=== PATIENT | female | born 2000 | race Hispanic/Latino ===

== ENCOUNTER 2020-01-13 15:53 | Emergency (ER) | payer MEDICAID, OTHER ==
[2020-01-13 16:32] LABS: APPEARANCE,URINE Clear (CLEAR); BILIRUBIN,URINE Negative (NEGATIVE); COLOR,URINE Yellow (YELLOW); GLUCOSE, URINE (UA) Negative (NEGATIVE); KETONES,URINE Negative (NEGATIVE); LEUKOCYTE ESTERASE ,URINE Negative (NEGATIVE); NITRATE,URINE Negative (NEGATIVE); OCCULT BLOOD,URINE Negative (NEGATIVE); PROTEIN,URINE Negative (NEGATIVE)
[2020-01-13] MEDS ORDERED: KETOROLAC TROMETHAMINE 30MG/ML ONE (17:23)
== END 2020-01-13 17:37 | disposition home or self-care (01) ==
LOC: EDH 15:53
DX: K62.89 Other specified diseases of anus and rectum (principal)
CPT/HCPCS: 81003; 96372; 99283; J1885

== ENCOUNTER 2021-09-04 01:46 | Emergency (ER) | payer MEDICAID ==
[~2021-09-04] VITALS: Ht 147.3 cm; Wt 62.1 kg
[2021-09-04 02:29] LABS: APPEARANCE,URINE SL CLOUDY (CLEAR); BILIRUBIN,URINE NEGATIVE (NEGATIVE); COLOR,URINE YELLOW (YELLOW); GLUCOSE, URINE (UA) NEGATIVE (NEGATIVE); KETONES,URINE 5 mg/dL (NEGATIVE); LEUKOCYTE ESTERASE ,URINE TRACE (NEGATIVE); NITRATE,URINE NEGATIVE (NEGATIVE); OCCULT BLOOD,URINE MODERATE (NEGATIVE); PROTEIN,URINE NEGATIVE (NEGATIVE)
[2021-09-04 02:31] LABS: HCG,QUALITATIVE URINE NEGATIVE (NEGATIVE)
[2021-09-04 02:40] LABS: BACTERIA,URINE Few /HPF (None Seen); MUCUS,URINE Few LPF (None Seen); SQUAMOUS EPITHELIAL CELL,UR Moderate /HPF (0-2)
[2021-09-04] MEDS ORDERED: HYDROXYZINE 10 MG TABLET PO SCH (03:30)
[2021-09-04] MEDS ORDERED: HYD25 PO (03:37)
[2021-09-04 04:07] VITALS: BP 105/74
[2021-09-04 04:13] LABS: BASOPHILS % (AUTO) 0.6 % (0.0-5.0); EOSINOPHILS % (AUTO) 0.6 % (0.0-8.0); HEMATOCRIT 39.2 % (36-48); LYMPHOCYTES % (AUTO) 34.1 % (21.0-51.0); MEAN CORPUSCULAR HEMOGLOBIN 29.6 pg (27.0-33.0); MEAN CORPUSCULAR HGB CONC 35.2 g/dL (32.0-36.0); MEAN CORPUSCULAR VOLUME 84.1 fL (79-99); MONOCYTES % (AUTO) 7.4 % (3.0-13.0); NEUTROPHILS % (AUTO) 57.1 % (40.0-77.0); PLATELET COUNT (AUTO) 285 K/uL (130-400); RED BLOOD CELL COUNT(AUTO) 4.66 MIL/uL (4.00-5.50); WHITE BLOOD COUNT (AUTO) 8.6 K/uL (4.8-10.8)
[2021-09-04 04:23] LABS: CREATININE 0.7 mg/dL (0.5-1.5); POTASSIUM 3.8 mmol/L (3.5-5.1)
[2021-09-04 04:28] LABS: ALBUMIN 4.1 g/dL (3.5-5.0); TOTAL PROTEIN, SERUM 7.8 g/dL (6.0-8.3)
== END 2021-09-04 04:30 | disposition home or self-care (01) ==
LOC: EDH 01:46
DX: F41.9 Anxiety disorder, unspecified (principal); Z79.899 Other long term (current) drug therapy
CPT/HCPCS: 36415; 80053; 81001; 81025; 84484; 85025; 93005

== ENCOUNTER 2022-04-28 14:06 | Emergency (ER) | payer MEDICAID ==
[~2022-04-28] VITALS: Ht 144.8 cm; Wt 63.5 kg
[~2022-04-28 14:06] MED LIST: HYD25 PO
[2022-04-28 15:11] VITALS: BP 112/75
[2022-04-28] MEDS ORDERED: AMOX500C2 PO (15:45)
== END 2022-04-28 16:12 | disposition home or self-care (01) ==
LOC: EDH 14:06
DX: J02.9 Acute pharyngitis, unspecified (principal)

== ENCOUNTER 2023-01-21 15:00 | Emergency (ER) | payer MEDICAID, OTHER ==
[~2023-01-21] VITALS: Ht 144.8 cm; Wt 65.8 kg
[~2023-01-21 15:00] MED LIST changes: +AMOX500C2 PO
[2023-01-21 16:58] LABS: APPEARANCE,URINE CLEAR (CLEAR); BILIRUBIN,URINE NEGATIVE (NEGATIVE); COLOR,URINE YELLOW (YELLOW); GLUCOSE, URINE (UA) NEGATIVE (NEGATIVE); KETONES,URINE 40 mg/dL (NEGATIVE); LEUKOCYTE ESTERASE ,URINE NEGATIVE Leu/uL (NEGATIVE); NITRATE,URINE NEGATIVE (NEGATIVE); OCCULT BLOOD,URINE NEGATIVE (NEGATIVE); PH,URINE 7.5 (5.0-8.0); PROTEIN,URINE NEGATIVE (NEGATIVE); UROBILINOGEN,URINE 0.2 mg/dL (0.2-1.0)
[2023-01-21 17:08] LABS: ADD UA MICROSCOPIC YES
[2023-01-21 17:09] LABS: BACTERIA,URINE RARE /HPF (None Seen); MUCUS,URINE RARE LPF (None Seen); RBC,URINE 0-1 /HPF (0-1); SQUAMOUS EPITHELIAL CELL,UR FEW /HPF (0-2); WBC,URINE 0-1 /HPF (0-1)
[2023-01-21 21:27] VITALS: BP 137/81; PULSE 88; RESP 18; O2SAT 98
[2023-01-21] MEDS ORDERED: PREN-154 PO (21:34)
== END 2023-01-21 21:44 | disposition home or self-care (01) ==
LOC: EDH 15:00
DX: R11.0 Nausea (principal); Z33.1 Pregnant state, incidental; Z79.899 Other long term (current) drug therapy
CPT/HCPCS: 36415; 76801; 81001; 84702; 84703

== ENCOUNTER 2023-03-18 09:51 | Emergency (ER) | payer OTHER ==
[~2023-03-18] VITALS: Ht 144.8 cm; Wt 61.7 kg
[~2023-03-18 09:51] MED LIST changes: +PREN-154 PO
[2023-03-18 09:52] VITALS: BP 125/67; PULSE 121; RESP 20
[2023-03-18 10:30] LABS: HCG,QUALITATIVE URINE POSITIVE (NEGATIVE)
[2023-03-18 10:33] LABS: APPEARANCE,URINE TURBID (CLEAR); BILIRUBIN,URINE NEGATIVE (NEGATIVE); COLOR,URINE DARK-YELLOW (YELLOW); GLUCOSE, URINE (UA) NEGATIVE (NEGATIVE); KETONES,URINE NEGATIVE (NEGATIVE); LEUKOCYTE ESTERASE ,URINE 500 Leu/uL (NEGATIVE); NITRATE,URINE 2+ (NEGATIVE); OCCULT BLOOD,URINE SMALL (NEGATIVE); PROTEIN,URINE 100 mg/dL (NEGATIVE); UROBILINOGEN,URINE 3 mg/dL (0.2-1.0)
[2023-03-18 10:36] LABS: ADD UA MICROSCOPIC YES
[2023-03-18 10:38] LABS: BACTERIA,URINE FEW /HPF (None Seen); MUCUS,URINE RARE LPF (None Seen); NON-SQUAMOUS EPITHELIAL CELL 2 /HPF (0-2); WBC CLUMP MANY /HPF (0-1); WBC,URINE TNTC /HPF (0-1)
[2023-03-18] MEDS: ONDANSETRON ODT 4MG TAB SL ONE (11:08)
[2023-03-18] MEDS: LACTATED RINGERS IV ONE (11:11)
[2023-03-18] MEDS: CEFTRIAXONE 2GM VIAL IVPB ONE (11:12)
[2023-03-18] MEDS: ONDANSETRON 4MG INJ IVP ONE (11:12)
[2023-03-18 11:17] LABS: BASOPHILS # (AUTO) 0.05 K/uL (0.00-0.20); BASOPHILS % (AUTO) 0.4 % (0.0-5.0); EOSINOPHILS # (AUTO) 0.02 K/uL (0.00-0.70); EOSINOPHILS % (AUTO) 0.2 % (0.0-8.0); IMMATURE GRANULOCYTE ABSOLUTE 0.05 K/uL (0-1); LYMPHOCYTES # (AUTO) 1.8 K/uL (1.0-4.8); LYMPHOCYTES % (AUTO) 16.5 % (21.0-51.0); MEAN CORPUSCULAR HEMOGLOBIN 29.8 pg (27.0-33.0); MEAN CORPUSCULAR HGB CONC 36.1 g/dL (32.0-36.0); MEAN CORPUSCULAR VOLUME 82.7 fL (79-99); MONOCYTES # (AUTO) 1.2 K/uL (0.1-1.0); MONOCYTES % (AUTO) 10.6 % (3.0-13.0); NEUTROPHILS % (AUTO) 71.9 % (40.0-77.0); PLATELET COUNT (AUTO) 332 K/uL (130-400); RED BLOOD CELL COUNT(AUTO) 3.99 MIL/uL (4.00-5.50); RED CELL DISTRIBUTION WIDTH 12.9 % (11.0-15.5); WHITE BLOOD COUNT (AUTO) 11.2 K/uL (4.8-10.8)
[2023-03-18 11:31] LABS: CREATININE 0.7 mg/dL (0.5-1.5); TOTAL PROTEIN, SERUM 7.7 g/dL (6.0-8.3)
[2023-03-18] MEDS: ACETAMINOPHEN 500 MG TABLET PO ONE (11:58)
[2023-03-18] MEDS: KCL 20 MEQ ERTAB PO ONE (12:35)
[2023-03-18] MEDS ORDERED: MACR100 PO (13:39)
[2023-03-18] MEDS ORDERED: PREN1CAP37 PO (13:39)
[2023-03-18] MEDS ORDERED: ONDA4TAB10 PO (13:39)
== END 2023-03-18 14:04 | disposition home or self-care (01) ==
LOC: EDH 09:51
DX: O23.42 Unspecified infection of urinary tract in pregnancy, second trimester (principal); O26.892 Other specified pregnancy related conditions, second trimester; E86.0 Dehydration; Z3A.16 16 weeks gestation of pregnancy; Z79.899 Other long term (current) drug therapy
CPT/HCPCS: 99285; 96365; 76805; 96366; 96375; 80053; 85025; 87040 ×2; 87077; 87088; 87186; 83605; 81001; 81025; 36415; J7120; J0696; J2405

== ENCOUNTER 2023-07-20 15:10 | Observation (INO) | payer MEDICAID, OTHER ==
[~2023-07-20] VITALS: Ht 147.3 cm; Wt 59.0 kg
[~2023-07-20 15:10] MED LIST changes: +MACR100 PO; +ONDA-243 PO; +PREN1CAP37 PO
[2023-07-20 15:19] VITALS: BP 101/69; PULSE 102; RESP 18
[2023-07-20 16:25] LABS: APPEARANCE,URINE CLEAR (CLEAR); BILIRUBIN,URINE NEGATIVE (NEGATIVE); COLOR,URINE LIGHT-YELLOW (YELLOW); GLUCOSE, URINE (UA) NEGATIVE (NEGATIVE); KETONES,URINE NEGATIVE (NEGATIVE); LEUKOCYTE ESTERASE ,URINE NEGATIVE Leu/uL (NEGATIVE); NITRATE,URINE NEGATIVE (NEGATIVE); OCCULT BLOOD,URINE NEGATIVE (NEGATIVE); PROTEIN,URINE NEGATIVE (NEGATIVE); UROBILINOGEN,URINE 0.2 mg/dL (0.2-1.0)
[2023-07-20 16:28] LABS: ADD UA MICROSCOPIC NO
[2023-07-20 16:37] LABS: AMPHET/METH SCREEN,URINE NEGATIVE (NEGATIVE); BARBITURATE SCREEN, URINE NEGATIVE (NEGATIVE); BENZODIAZEPINES SCREEN,URINE NEGATIVE (NEGATIVE); CANNABINOID SCREEN,URINE NEGATIVE (NEGATIVE); COCAINE SCREEN,URINE NEGATIVE (NEGATIVE); OPIATE SCREEN,URINE NEGATIVE (NEGATIVE); PHENCYCLIDINE SCREEN,URINE NEGATIVE (NEGATIVE)
== END 2023-07-20 17:00 | disposition home or self-care (01) ==
LOC: EDH 15:10 → LDH 15:11
PROVIDERS: ADMIT Internal Medicine; ATTEND Internal Medicine
DX: O26.893 Other specified pregnancy related conditions, third trimester (principal); R10.2 Pelvic and perineal pain; Z3A.34 34 weeks gestation of pregnancy; Z79.899 Other long term (current) drug therapy
CPT/HCPCS: 80305; 81003; G0379; G0378

== ENCOUNTER 2023-09-13 06:47 | Emergency (ER) | payer MEDICAID ==
[~2023-09-13] VITALS: Ht 147.3 cm; Wt 59.9 kg
[2023-09-13] MEDS: MORPHINE 4 MG SYG IVP ONE (08:28)
[2023-09-13 08:29] LABS: BASOPHILS # (AUTO) 0.06 K/uL (0.00-0.20); BASOPHILS % (AUTO) 0.6 % (0.0-5.0); EOSINOPHILS # (AUTO) 0.03 K/uL (0.00-0.70); EOSINOPHILS % (AUTO) 0.3 % (0.0-8.0); HEMATOCRIT 36.9 % (36-48); IMMATURE GRANULOCYTE ABSOLUTE 0.07 K/uL (0-1); LYMPHOCYTES # (AUTO) 2.2 K/uL (1.0-4.8); LYMPHOCYTES % (AUTO) 22.7 % (21.0-51.0); MEAN CORPUSCULAR HGB CONC 33.1 g/dL (32.0-36.0); MEAN CORPUSCULAR VOLUME 78.7 fL (79-99); MONOCYTES # (AUTO) 0.5 K/uL (0.1-1.0); NEUTROPHILS # (AUTO) 6.9 K/uL (1.8-7.7); NEUTROPHILS % (AUTO) 70.7 % (40.0-77.0); PLATELET COUNT (AUTO) 334 K/uL (130-400); RED BLOOD CELL COUNT(AUTO) 4.69 MIL/uL (4.00-5.50); RED CELL DISTRIBUTION WIDTH 13.7 % (11.0-15.5); WHITE BLOOD COUNT (AUTO) 9.8 K/uL (4.8-10.8)
[2023-09-13 08:38] LABS: CREATININE 0.9 mg/dL (0.5-1.0); POTASSIUM 3.2 mmol/L (3.5-5.1)
[2023-09-13 08:42] LABS: ALBUMIN 4.1 g/dL (3.5-5.0); BILIRUBIN,TOTAL 0.5 mg/dL (0.2-1.0); TOTAL PROTEIN, SERUM 8.1 g/dL (6.0-8.3)
[2023-09-13] MEDS ORDERED: IOHEXOL 350 MG/ML 100ML INFUS..BTL IV ONE (09:29)
[2023-09-13 10:18] LABS: APPEARANCE,URINE CLEAR (CLEAR); BILIRUBIN,URINE NEGATIVE (NEGATIVE); COLOR,URINE LIGHT-YELLOW (YELLOW); GLUCOSE, URINE (UA) NEGATIVE (NEGATIVE); KETONES,URINE NEGATIVE (NEGATIVE); LEUKOCYTE ESTERASE ,URINE NEGATIVE Leu/uL (NEGATIVE); NITRATE,URINE NEGATIVE (NEGATIVE); OCCULT BLOOD,URINE NEGATIVE (NEGATIVE); PROTEIN,URINE NEGATIVE (NEGATIVE); UROBILINOGEN,URINE 0.2 mg/dL (0.2-1.0)
[2023-09-13 10:48] LABS: ADD UA MICROSCOPIC YES
[2023-09-13 11:10] LABS: MUCUS,URINE RARE LPF (None Seen); SQUAMOUS EPITHELIAL CELL,UR FEW /HPF (0-2)
[2023-09-13 12:00] VITALS: BP 103/61; PULSE 63; RESP 17; O2SAT 99
[2023-09-13] MEDS: KETOROLAC 30MG VIAL (30MG/ML) IVP ONE (12:55)
[2023-09-13] MEDS: LACTATED RINGERS 1000ML 1,000 ML IV ONE (12:56)
[2023-09-13] MEDS: KCL 20 MEQ ERTAB PO ONE (12:56)
== END 2023-09-13 15:12 | disposition short-term general hospital (02) ==
LOC: EDH 06:47 → EEVIPCON 06:47 → EDH 15:12
DX: S22.080A Wedge compression fracture of T11-T12 vertebra, initial encounter for closed fracture (principal); T74.21XA Adult sexual abuse, confirmed, initial encounter; S90.32XA Contusion of left foot, initial encounter; V89.2XXA Person injured in unspecified motor-vehicle accident, traffic, initial encounter; Y93.89 Activity, other specified; Y92.488 Other paved roadways as the place of occurrence of the external cause; Y99.8 Other external cause status
CPT/HCPCS: 99285; 71270; 96374; 96375; 82550; 80053; 84703; 83690; 85025; 81001; 36415; 73630; 74178; J7120; J2270; J1885; Q9967

== ENCOUNTER 2024-07-03 16:04 | Emergency (ER) | payer MEDICAID ==
[~2024-07-03] VITALS: Ht 147.3 cm; Wt 61.2 kg
[2024-07-03] MEDS ORDERED: HYDR-3421 PO (17:56)
--- NOTE | 2024-07-03 17:57 | ERN ---
General Chief Complaint: Anxiety/Panic Attack Stated Complaint: ANXIETY/ DEPRESSION Time Seen by MD: 16:40 Time Seen by Midlevel: 16:40 Source: patient History of Present Illness Initial Comments Patient is a 23-year-old female with a extensive history of anxiety presenting to the emergency department for evaluation of anxiety. The patient has a feeling of impending doom. Previously she had her anxiety under control with hydroxyzine 25 mg twice a day but she ran out of her medication. Two days ago she attempted to get in with the primary care doctor but did not have an appointment scheduled until next week on Sunday. She waited two days and ultimately decided to report to the ER given her symptoms. Patient is requesting a refill of her medication. Denies any other symptoms Allergies: Coded Allergies: No Known Drug Allergies (Unverified Allergy, Unknown, 09/04/21) Home Meds No Active Prescriptions or Reported Meds Past Medical History Past Medical History: Anxiety, Depression Past Surgical History: None Social History Social History: Negative, Lives with family Female( History) History: Not Applicable LMP: June 26, 2024 : 4 Para: 3 Aborts: 1 ROS Dictation CONSTITUTIONAL: Negative except for HPI HEAD/FACE: Negative except for HPI EENT: Negative except for HPI RESPIRATORY: Negative except for HPI GASTROINTESTINAL/ABDOMINAL: Negative except for HPI GENITOURINARY: Negative except for HPI MUSCULOSKELETAL: Negative except for HPI INTEGUMENTARY: Negative except for HPI NEUROLOGICAL/PSYCH: Negative except for HPI HEMATOLOGIC/LYMPHATIC: Negative except for HPI All Systems Negative, Except as noted above. 13 point review of systems assessed and all negative except for above. Physical Exam Physical Exam Dictation Vital Signs reviewed General Appearance: Alert, oriented x 3, no acute distress, well developed, nourished. Head and Face: non-traumatic. Eyes: PERRL, pink conjunctivas, eyelid no trauma, anterior chamber with arcus senilis. Ears: Pinnas intact and no signs of trauma or erythema ear canals clear and no discharge TM no erythema Nose: No discharge, no bleeding. Oropharynx: Mouth normal, tongue pink, pharynx clear,no erythema, tonsils no exudates, no abscesses noted, mucous membrane moist Neck: Supple, non-tender, no thyromegaly, no masses, no JVD, no bruits Breast:Deferred Chest:No tenderness, no crepitus, no paradoxical movement, no retractions Lungs:Clear, well-ventilated, symmetric, no rales, no wheezing, no rhonchi, no stridor, good breath sounds bilaterally Heart: Regular rate, regular rhythm, no murmur, no gallops Vascular: no peripheral edema, Abdomen: Soft, positive bowel sounds, nondistended, no guarding, nontender, no rebound, no masses no hepatomegaly, no splenomegaly, no Hernández's sign, no hernias. Rectal: Deferred Genital: Deferred Neurological: Normal speech, motor function intact, sensory function intact Musculoskeletal: Neck nontender, full range of motion, back nontender, full range of motion, Extremities: nontender, full range of motion Skin: Color pink, dry, no turgor, no rash, no lacerations, no abrasions, no contusions. Lymphatic: Deferred MDM MDM: Differential diagnosis: Anxiety reaction, depression, psychiatric problem There are no social concerns with this patient. Prescription drug management Prescriptions will include: Hydroxyzine Medical management and examination interpretation discussions were had by me with other qualified healthcare professionals as indicated for the patient's care. ED Course Orders Procedure Category Date Status Time Hydroxyzine 25mg Tab PHA 07/03/24 Verified (Atarax 25mg Tab) 18:00 Vital Signs Date Time Temp Pulse Resp B/P (MAP) Pulse Ox O2 Delivery O2 Flow Rate FiO2 07/03/24 17:11 98.4 107 18 104/73 100 Room Air* 0 21 07/03/24 16:05 98.4 107 18 104/73 100 Room Air 0 DX & DISP Disposition: Discharge Departure Impression: Primary Impression: Acute anxiety Condition: Stable Scripts Hydroxyzine HCl (Hydroxyzine HCl) 25 Mg Tablet 1 TAB PO BID for anxiety for 10 Days, #20 TAB 0 Refills Prov: CONSUELO GIL 07/03/24 Referrals: KAYY DODSON (PCP) I have reviewed the case, and I agree with, Diagnosis and Plan I performed the substantive portion of the visit. I have reviewed and personally made and approve the management plan that is documented in the note by myself or the JAMES. I acknowledge for responsibility for the patient's management plan. CONSUELO GIL July 03, 2024 17:56
[2024-07-03] MEDS: hydrOXYzine 25 MG TABLET PO ONE (18:22)
[2024-07-03 18:25] VITALS: BP 111/68; PULSE 92; RESP 18; TEMP 98.4; O2SAT 100
== END 2024-07-03 18:26 | disposition home or self-care (01) ==
LOC: EDH 16:04
DX: F41.9 Anxiety disorder, unspecified (principal); Z91.148 Patient's other noncompliance with medication regimen for other reason
CPT/HCPCS: 99283

== ENCOUNTER 2024-12-15 14:42 | Emergency (ER) | payer SELFPAY ==
[~2024-12-15] VITALS: Ht 147.3 cm; Wt 68.0 kg
[~2024-12-15 14:42] MED LIST changes: -AMOX500C2 PO; -HYD25 PO; +HYDR-3421 PO; -MACR100 PO; -ONDA-243 PO; -PREN-154 PO; -PREN1CAP37 PO
--- NOTE | 2024-12-15 14:48 | ERN ---
ED Note History of Present Illness Stated Complaint: HAD ABN EKG AT SCHOOL Chief Complaint: Other Problems Time Seen by MD: 14:45 Dictation: PATIENT IS A 24-YEAR-OLD FEMALE COMING IN FROM A LOCAL [facility] WITH COMPLAINTS OF PRACTICE SEEING EKGS THIS AFTERNOON. STATES THE INSTRUCTED TOLD HER EKG WAS NORMAL SHE CIRCLED A AN INVERTED T-WAVE IN THE AVR LEAD. PATIENT SHE BETTER GO TO THE HOSPITAL. PATIENT DENIES ANY CARDIAC HISTORY NO CHEST PAIN NO BACK PAIN NO SOB. SHE HAS NO PRIMARY CARE DOCTOR AND NO COMPLAINTS OF AT THIS TIME OTHER THAN WAS TOLD TO COME HERE Allergies: Coded Allergies: No Known Drug Allergies (Unverified Allergy, Unknown, 09/04/21) Home Meds Active Scripts Hydroxyzine HCl (Hydroxyzine HCl) 25 Mg Tablet, 1 TAB PO BID for anxiety for 10 Days, #20 TAB 0 Refills Prov:CONSUELO GIL PAC 07/03/24 Past Medical History Past Medical History: Anxiety, Depression Surgical History: None Social History: Negative, Lives with family History: Not Applicable : 4 Para: 3 Aborts: 1 RN Note Reviewed/Agreed w/PFSH: Yes Review of System Dictation CONSTITUTIONAL: NEGATIVE EXCEPT FOR HPI HEAD/FACE: NEGATIVE EXCEPT FOR HPI EENT: NEGATIVE EXCEPT FOR HPI RESPIRATORY: NEGATIVE EXCEPT FOR HPI GASTROINTESTINAL/ABDOMINAL: NEGATIVE EXCEPT FOR HPI GENITOURINARY: NEGATIVE EXCEPT FOR HPI MUSCULOSKELETAL: NEGATIVE EXCEPT FOR HPI INTEGUMENTARY: NEGATIVE EXCEPT FOR HPI NEUROLOGICAL/PSYCH: NEGATIVE EXCEPT FOR HPI HEMATOLOGIC/LYMPHATIC: NEGATIVE EXCEPT FOR HPI ALL SYSTEMS NEGATIVE, EXCEPT NOTED ABOVE. 13 POINT REVIEW OF SYSTEMS ASSESSED AND ALL NEGATIVE EXCEPT FOR ABOVE. Initial Vital Sign VS Vital Signs Date Time Temp Pulse Resp B/P (MAP) Pulse Ox O2 Delivery O2 Flow Rate FiO2 12/15/24 14:44 98.2 110 18 116/75 99 Room Air 0 12/15/24 15:56 21 Physical Exam Dictation VITAL SIGNS REVIEWED GENERAL APPEARANCE: ALERT, ORIENTED X 3, NO ACUTE DISTRESS, WELL DEVELOPED, NOURISHED. 0/10 HEAD AND FACE: NON-TRAUMATIC. EYES: PERRL, PINK CONJUNCTIVAS, EYELID NO TRAUMA, ANTERIOR CHAMBER WITH ARCUS SENILIS. EARS: PINNAS INTACT AND NO SIGNS OF TRAUMA OR ERYTHEMA EAR CANALS CLEAR AND NO DISCHARGE TM NO ERYTHEMA NOSE: NO DISCHARGE, NO BLEEDING. OROPHARYNX: MOUTH NORMAL, TONGUE PINK, PHARYNX CLEAR,NO ERYTHEMA, TONSILS NO EXUDATES, NO ABSCESSES NOTED, MUCOUS MEMBRANE MOIST NECK: SUPPLE, NON-TENDER, NO THYROMEGALY, NO MASSES, NO JVD, NO BRUITS BREAST:DEFERRED CHEST:NO TENDERNESS, NO CREPITUS, NO PARADOXICAL MOVEMENT, NO RETRACTIONS LUNGS:CLEAR, WELL-VENTILATED, SYMMETRIC, NO RALES, NO WHEEZING, NO RHONCHI, NO STRIDOR, GOOD BREATH SOUNDS BILATERALLY HEART: REGULAR RATE, REGULAR RHYTHM, NO MURMUR, NO GALLOPS VASCULAR: NO PERIPHERAL EDEMA, ABDOMEN: SOFT, POSITIVE BOWEL SOUNDS, NONDISTENDED, NO GUARDING, NONTENDER, NO REBOUND, NO MASSES NO HEPATOMEGALY, NO SPLENOMEGALY, NO WALKER'S SIGN, NO HERNIAS. RECTAL: DEFERRED GENITAL: DEFERRED NEUROLOGICAL: NORMAL SPEECH, MOTOR FUNCTION INTACT, SENSORY FUNCTION INTACT MUSCULOSKELETAL: NECK NONTENDER, FULL RANGE OF MOTION, BACK NONTENDER, FULL RANGE OF MOTION, EXTREMITIES: NONTENDER, FULL RANGE OF MOTION SKIN: COLOR PINK, DRY, NO TURGOR, NO RASH, NO LACERATIONS, NO ABRASIONS, NO CONTUSIONS. LYMPHATIC: DEFERRED Results (Laboratory/Radiology) Laboratory/Radiology Laboratory Tests Test 12/15/24 15:13 White Blood Count 6.7 K/uL (4.8-10.8) Red Blood Count 4.73 MIL/uL (4.00-5.50) Hemoglobin 13.6 g/dL (12.0-16.0) Hematocrit 40.4 % (36-48) Mean Corpuscular Volume 85.4 fL (79-99) Mean Corpuscular Hemoglobin 28.8 pg (27.0-33.0) Mean Corpuscular Hemoglobin Concent 33.7 g/dL (32.0-36.0) Red Cell Distribution Width 12.5 % (11.0-15.5) Platelet Count 305 K/uL (130-400) Mean Platelet Volume 10.2 fL (7.5-10.5) Immature Granulocyte % (Auto) 0.3 % (0-1) Neutrophils (%) (Auto) 57.7 % (40.0-77.0) Lymphocytes (%) (Auto) 32.5 % (21.0-51.0) Monocytes (%) (Auto) 7.6 % (3.0-13.0) Eosinophils (%) (Auto) 0.9 % (0.0-8.0) Basophils (%) (Auto) 1.0 % (0.0-5.0) Neutrophils # (Auto) 3.9 K/uL (1.8-7.7) Lymphocytes # (Auto) 2.2 K/uL (1.0-4.8) Monocytes # (Auto) 0.5 K/uL (0.1-1.0) Eosinophils # (Auto) 0.06 K/uL (0.00-0.70) Basophils # (Auto) 0.07 K/uL (0.00-0.20) Absolute Immature Granulocyte (auto 0.02 K/uL (0-1) Nucleated Red Blood Cells 0.0 % (0.0-0.19) Sodium Level 137 mmol/L (136-145) Potassium Level 3.7 mmol/L (3.5-5.1) Chloride Level 101 mmol/L (101-111) Carbon Dioxide Level 29 mmol/L (21-32) Blood Urea Nitrogen 13 mg/dL (7-18) Creatinine 0.6 mg/dL (0.5-1.0) Glomerular Filtration Rate Calc 128 mL/min (>90) Random Glucose 90 mg/dL (70-105) Total Calcium 8.8 mg/dL (8.5-10.1) Magnesium Level 1.70 mg/dL (1.80-2.40) L Troponin I High Sensitivity < 4 ng/L (4-50) L Labs Reviewed?: Yes EKG Comment: 1453/EKG NORMAL SINUS RHYTHM/HEART RATE 84/AXIS NORMAL/NO ECTOPY ED Course ED Course Orders Procedure Category Date Status Time Cbc With Differential LAB 12/15/24 Complete 14:47 12 Lead Ekg Tracing- EKG 12/15/24 Complete Technical 14:47 Magnesium LAB 12/15/24 Complete 14:47 Troponin I High LAB 12/15/24 Complete Sensitivity 14:47 Basic Metabolic Panel LAB 12/15/24 Complete 14:47 Vital Signs Date Time Temp Pulse Resp B/P (MAP) Pulse Ox O2 Delivery O2 Flow Rate FiO2 12/15/24 15:56 98.2 110 18 116/75 99 Room Air* 0 21 12/15/24 14:44 98.2 110 18 116/75 99 Room Air 0 1745/PATIENT HAS A COMPLETELY NORMAL SINUS RHYTHM WITH TROPONIN LESS THAN FOUR. MAGNESIUM 1.7 AND WE WILL BE REPLACED OUTPATIENT PATIENT TOLD TO SEE HER PRIMARY CARE HEART Score Response (Comments) Value History: Low suspicion (0) 0 EKG: Normal 0 Age: < 45yrs (0) 0 Risk Factors: No known risk factors (0) 0 Initial Troponin: Normal limit (0) 0 Total 0 Medical Decision Making MDM MDM: DIFFERENTIAL DIAGNOSIS: ACS/DC/ARRHYTHMIA/ELECTROLYTE IMBALANCE/DEHYDRATION RATIONALE: TESTS CONSIDERED AND ORDERED SECONDARY TO SHARED DECISION MAKING INCLUDE: LABS/EKG PREVIOUS OUTSIDE RECORDS REVIEWED: OLD ER VISITS. RISK OF COMPLICATION AND/OR MORBIDITY OR MORTALITY OF PATIENT MANAGEMENT: NONE MEDICATIONS-PER MEDICATION RECONCILIATION NEED FOR HOSPITALIZATION: PATIENT DOES NOT MEET CRITERIA FOR HOSPITALIZATION. NONE NEED FOR EMERGENCY MAJOR/MINOR SURGERY: NO THERE ARE NO SOCIAL CONCERNS WITH THIS PATIENT. PRESCRIPTION DRUG MANAGEMENT MAGNESIUM PRESCRIPTIONS WILL INCLUDE SYMPTOMATIC CARE PATIENT'S PRIOR EXTERNAL MEDICAL RECORDS FROM OTHER ER VISITS WERE REVIEWED BY ME INDICATED. PRIOR TESTING AND RESULTS FROM PREVIOUS VISITS WERE REVIEWED. PRIOR TESTS WERE TAKEN INTO ACCOUNT WITH MEDICAL DECISION MAKING AND RESOURCE UTILIZATION, INDEPENDENT HISTORIAN/HISTORIANS WERE USED TO OBTAIN COMPLETE MEDICAL HISTORY. I INDEPENDENTLY INTERPRETED THE TEST THAT WERE PERFORMED, RESULTS WERE REVIEWED BY ME AND CONSIDERED FINDINGS ON RADIOLOGY IF ORDERED. MEDICAL MANAGEMENT AND EXAMINATION INTERPRETATION DISCUSSIONS WERE HAD BY ME WITH OTHER QUALIFIED HEALTHCARE PROFESSIONALS INDICATED FOR THE PATIENT'S CARE. DX & DISP Disposition: Discharge Departure Impression: Primary Impression: Acute anxiety Additional Impression: Hypomagnesemia Condition: Stable Scripts Magnesium Oxide/Mag Aa Chelate (Magnesium 300 mg Capsule) 300 Mg Capsule 300 MG PO DAILY for 10 Days, #10 CAP 0 Refills Prov: JUAN FRANCISCO THURMAN 12/15/24 Referrals: KAYY DODSON (PCP) Time of Disposition: 17:47 I have reviewed the case, and I agree with, Diagnosis and Plan JUAN FRANCISCO THURMAN Dec 15, 2024 14:48
--- NOTE | 2024-12-15 15:00 | EKG ---
[facility] Test Date: 2024-12-15 Test Time: 14:53:20 Pat Name: PINEDA CALLAHAN Department: ED Room: Gender: F Ham Curer: [id number] : 2000 Requested By: JUAN FRANCISCO THURMAN Order Number: [id number] Reading MD: Jenniffer Freitas Measurements Intervals [place] Rate: 84 P: 35 UT: 137 QRS: 82 QRSD: 79 T: 29 QT: 358 QTc: 424 Interpretive Statements Sinus rhythm Low voltage, precordial leads Compared to ECG 09/04/2021 03:54:13 Low QRS voltage now present Electronically Signed On 12-17-2024 08:49:17 UNDERGROUND REPAIRER by Jenniffer Freitas Please click the below link to view image of tracing.
[2024-12-15 15:28] LABS: IMMATURE GRANULOCYTE ABSOLUTE 0.02 K/uL (0-1); NUCLEATED RED BLOOD CELLS 0.0 % (0.0-0.19); PLATELET COUNT (AUTO) 305 K/uL (130-400); RED BLOOD CELL COUNT(AUTO) 4.73 MIL/uL (4.00-5.50); RED CELL DISTRIBUTION WIDTH 12.5 % (11.0-15.5); WHITE BLOOD COUNT (AUTO) 6.7 K/uL (4.8-10.8)
[2024-12-15 15:39] LABS: CREATININE 0.6 mg/dL (0.5-1.0); GLOMERULAR FILTR. RATE CALC 128.0 mL/min (>90); GLUCOSE,RANDOM 90.0 mg/dL (70-105); SODIUM SERUM 137.0 mmol/L (136-145); UREA NITROGEN, BLOOD 13.0 mg/dL (7-18)
[2024-12-15] MEDS ORDERED: MAGN300C PO (17:48)
[2024-12-15 18:17] VITALS: BP 124/72; PULSE 92; RESP 18; TEMP 98.2; O2SAT 99
== END 2024-12-15 18:18 | disposition home or self-care (01) ==
LOC: EDH 14:42
DX: F41.9 Anxiety disorder, unspecified (principal); E83.42 Hypomagnesemia; Z79.899 Other long term (current) drug therapy
CPT/HCPCS: 36415; 80048; 83735; 84484; 85025; 93005; 99284